=== PATIENT | female | born 1980 | race Caucasian/White ===

== ENCOUNTER 2019-08-28 18:15 | Emergency (ER) | payer OTHER ==
--- OUTSIDE RECORDS SUMMARY | 2019-08-28 18:20 | XMS REPORT | Summary of Care ---
:1980 Author Organization [facility] Address [address] [address] Care Team Providers Name Role Phone [place]Memo Lul Primary Care Provider Reason for Visit Sleep Study (Routine) Status Reason Specialty Diagnoses / Referred By Referred To Procedures Contact Contact Closed Sleep Disorder Diagnoses Insufficient sleep syndrome Annita Womack, [facility] PA-Yoly [address] [place] [phone] Phone: Encounter Details Date Type Department Care Team Description 08/17/2019 Hospital Encounter [facility] Sleep Lab Outpatient [address] [place] [phone] Allergies No Known Allergiesdocumented as of this encounter (statuses as of 08/19/2019) Medications Medication Sig Dispensed Refills Start Date End Date Status Aspirin-Acetaminophen- Take by mouth 0 Active Caffeine (EXCEDRIN DAILY NEEDED. MIGRAINE) 250-250-65 MG Oral Tab Acetaminophen Take by mouth. 0 Active (TYLENOL) 325 MG Oral Cap albuterol HFA Take 2 Puffs by 1 Inhaler 5 06/28/2019 Active (VENTOLIN) 108 (90 inhalation EVERY Base) MCG/ACT FOUR HOURS Inhalation Aero Soln NEEDED (short of breath and wheezing). documented as of this encounter (statuses as of 08/19/2019) Active Problems Problem Noted Date Headache syndrome 06/02/2013 Tobacco use disorder 08/26/2012 Overview: 1 pack per day began age 20 Tried e cigarette February 2013 quit one month Family history of diabetes mellitus 08/26/2012 Obesity, unspecified 08/26/2012 Overview: bmi 34 08/2012 documented as of this encounter (statuses as of 08/19/2019) Immunizations Name Administration Dates Next Due Influenza (IM) Preservative Free 12/19/2014, 08/26/2012 documented as of this encounter Social History Tobacco Use Types Packs/Day Years Used Date Current Every Day Smoker Cigarettes 1 15 Smokeless Tobacco: Never Used Comments: cutting down Alcohol Use Drinks/Week oz/Week Comments No 0 Standard drinks or equivalent 0.0 Sex Assigned at Date Recorded Not on file Job Start Date Occupation Industry Not on file Not on file Not on file Travel History Travel Start Travel End No recent travel history available. documented as of this encounter Last Filed Vital Signs Not on filedocumented in this encounter Plan of Treatment Name Type Priority Associated Diagnoses Order Schedule REFER TO SLEEP STUDY Referral Routine Insufficient sleep syndrome Ordered: 07/27/2019 LAB Health Maintenance Due Date Last Done Comments PNEUMOCOCCAL 0-64 YRS (1 of 1 1987 - PPSV23) HIV SCREENING 1996 PAP SMEAR 2002 INFLUENZA VACCINE (#1) 2019 12/19/2014, 08/26/2012 DEPRESSION SCREENING 07/27/2020 07/27/2019 HPV IMMUNIZATION SERIES Aged Out No longer eligible based on patient's age to complete this topic MENINGOCOCCAL VACCINE IMM Aged Out No longer eligible based on patient's age to complete this topic documented as of this encounter Results Not on filedocumented in this encounter documented as of this encounter
--- OUTSIDE RECORDS SUMMARY | 2019-08-28 18:20 | XMS REPORT | Summary of Care ---
:1980 Author Organization [facility] Address [address] [facility] [place] [address] Care Team Providers Name Role Phone Memo Kumar Primary Care Provider Reason for Referral Sleep Study (Routine) Status Reason Specialty Diagnoses / Referred By Referred To Procedures Contact Contact Pending Review Sleep Disorder Diagnoses Insufficient sleep syndrome Sue Womack [facility] BLAS Ariza [address] [place] [address] [place], [place] [address] [phone] Phone: Scheduling Instructions This order is to be used to begin the process for the patient to have a Sleep Study performed. If you wish to have the patient evaluated by a Sleep Specialist, please place a "Refer Sleep Medicine Specialist" order. If you have questions, please contact our Patient Coordinators: Tash: Oran: Casimiro: ([phone] or Reason for Visit Reason Comments Sleep Problem pt states she has daytime sleepiness, morning headaches, snoring , and family Hx of sleep apnea. pt would like home sleep study Encounter Details Date Type Department Care Team Description 07/27/2019 Office Visit [place] Annita Womack Insufficient sleep syndrome (Primary Dx); Practice PAChris Tobacco use disorder; [address] Class 3 severe obesity with body mass index (BMI) of 40.0 to 44.9 in adult, unspecified obesity type, unspecified whether serious comorbidity present ([facility]) [place] [address] [phone] Allergies No Known Allergiesdocumented as of this encounter (statuses as of 07/27/2019) Medications Medication Sig Dispensed Refills Start Date [...] as of this encounter (statuses as of 07/27/2019) Active Problems Problem Noted Date Headache syndrome 06/02/2013 Tobacco use disorder 08/26/2012 Overview: 1 pack per day began age 20 Tried e cigarette February 2013 quit one month Family history of diabetes mellitus 08/26/2012 Obesity, unspecified 08/26/2012 Overview: bmi 34 08/2012 documented as of this encounter (statuses as of 07/27/2019) Immunizations Name Administration Dates Next Due Influenza [...] of this encounter Last Filed Vital Signs Vital Sign Reading Time Taken Comments Blood Pressure 122/82 07/27/2019 1:48 PM EST Pulse 105 07/27/2019 1:48 PM EST Temperature 36.9 07/27/2019 1:48 PM EST C (98.4 F) Respiratory Rate - - Oxygen Saturation 97% 07/27/2019 1:48 PM EST Inhaled Oxygen Concentration - - Weight 106.6 kg (235 lb) 07/27/2019 1:48 PM EST Height 160 cm (5' 3") 07/27/2019 1:48 PM EST Body Mass Index 41.63 07/27/2019 1:48 PM EST documented in this encounter Patient Instructions Patient InstructionsDoAnnita garcia PA-C - 07/27/2019 1:40 PM EST1. Ordered Home sleep study, [employer]ATING SAF[employer]Y OFFICER will call after he gets insurance approval 2. Strongly suggested patient stop smoking, says she will try to cut back documented in this encounter Progress Notes Annita Womack PA-C - 07/27/2019 1:40 PM EST PATIENT: Caitie Llamas : 1980 DATE OF SERVICE: 07/27/2019 REFERRING PRACTITIONER: Padilla PRIMARY CARE PROVIDER: Memo Kumar CHIEF COMPLAINT: Chief Complaint Patient presents with Sleep Problem pt states she has daytime sleepiness, morning headaches, snoring, and family Hx of sleep apnea. ptwould like home sleep study Subjective HISTORY OF PRESENT ILLNESS: Caitie Llamas is a 39-y.o. female who presents to discuss having sleep study Says she snores loudly, experiencing daytime sleepiness, morning headaches Family history of sleep apnea Asking for sleep study Smoking 1ppd Denies fever, chills, nausea, vomiting, diarrhea, chest pains, SOB No past medical history on file. Past Surgical History: Procedure Laterality Date LOW CERVICAL x3 Family History Problem Relation Age of Onset Cancer Maternal Grandmother pancreatic Cancer Paternal Grandmother brain Heart Disease Paternal Grandfather Diabetes Other cousin Depression/Depressed Unknown several maternal relatives Asthma Brother Current Outpatient Medications Medication Sig Acetaminophen (TYLENOL) 325 MG Oral Cap Take by mouth. albuterol HFA (VENTOLIN) 108 (90 Base) MCG/ACT Inhalation Aero Soln Take 2 Puffs by inhalation EVERY FOUR HOURS NEEDED (short of breath and wheezing) . Jkqsenv-Sslkcrzitabrc-Snxjtucp (EXCEDRIN MIGRAINE) 250-250-65 MG Oral Tab Take by mouth DAILY NEEDED. No current facility-administered medications for this visit. No Known Allergies Social History Socioeconomic History Marital status: Single Spouse name: Not on file Number of children: Not on file Years of education: Not on file Highest education level: Not on file Occupational History Not on file Social Needs Financial resource strain: Not on file Food insecurity: Worry: Not on file Inability: Not on file Transportation needs: Medical: Not on file Non-medical: Not on file Tobacco Use Smoking status: Current Every Day Smoker Packs/day: 1.00 Years: 15.00 Pack years: 15.00 Types: Cigarettes Smokeless tobacco: Never Used Tobacco comment: cutting down Substance and Sexual Activity Alcohol use: No Alcohol/week: 0.0 standard drinks Drug use: No Sexual activity: Yes Partners: Female Lifestyle Physical activity: Days per week: Not on file Minutes per session: Not on file Stress: Not on file Relationships Social connections: Talks on phone: Not on file Gets together: Not on file Attends yazidism service: Not on file Active member of club or organization: Not on file Attends meetings of clubs or organizations: Not on file Relationship status: Not on file Intimate partner violence: Fear of current or ex partner: Not on file Emotionally abused: Not on file Physically abused: Not on file Forced sexual activity: Not on file Other Topics Concern Back Care Not Asked Bike Helmet Not Asked Blood Transfusions Not Asked Caffeine Concern Not Asked Exercise Yes Comment: walks 2 times per day Hobby Hazards Not Asked International Travel Not Asked Service Not Asked Occupational Exposure Not Asked Seat Belt Not Asked Self-Exams Not Asked Sleep Concern No Special Diet No Stress Concern Not Asked Weight Concern Yes Comment: goal wt loss 50 lbs or 150 lbs Social History Narrative Grew up in [place], [place] Lives in [place], [place] Single, has boyfriend whom she lives with 3 kids 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 REVIEW OF SYSTEMS: Skin: negative skin lesions Eyes: negative visual blurring Ears/Nose/Throat: negative rhinorrhea or sore throat Respiratory: negative cough Cardiovascular: negative chest pain Gastrointestinal: negative abdominal pain, constipation, diarrhea, nausea or vomiting Genitourinary: negative burning on urination, dysuria or vaginal discharge Musculoskeletal: negative arthritis/joint pain Neurologic: negative numbness or tingling of feet or hands Psychiatric: negative anxiety Hematologic/Lymphatic/Immunologic: negative allergies Endocrine: negative diabetes or hot flashes/sweats Objective PHYSICAL EXAMINATION: VITALS: BP 122/82 (BP Location: Right arm, Patient Position: Sitting) | Pulse 105 | Temp 98.4 F (36.9 C) | Ht 5' 3" (1.6 m) | Wt 235 lb (106.6 kg) | SpO2 97% | BMI 41.63 kg/m Body mass index is 41.63 kg/m. General appearance - alert, no distress, cooperative, oriented times 3, morbidly obese Skin - Skin color, texture, turgor normal. No rashes or lesions. Head - Normocephalic. No masses, lesions, tenderness or abnormalities Eyes - conjunctivae/corneas clear. PERRL, EOM's intact. Oropharynx - Lips, mucosa, and tongue normal. Oropharynx Normal. Mallampati: 3 Neck - Neck supple, FROM. No cervical or supraclavicular adenopathy. Thyroid normal, no enlargement Lungs - Good diaphragmatic excursion. Lungs clear. Chest symmetrical. Normal breath sounds. Heart - RRR. No murmurs, clicks or gallops. No peripheral edema. . IMPRESSION: ICD-9-CM ICD-10-CM 1. Insufficient sleep syndrome 307.44 F51.12 REFER TO SLEEP STUDY LAB 2. Tobacco use disorder 305.1 F17.200 3. Class 3 severe obesity with body mass index (BMI) of 40.0 to 44.9 in adult, unspecified obesity type, unspecified whether serious comorbidity present ([facility]) E66.01 Z68.41 Plan PLAN: 1. Ordered Home sleep study, BOATING SAFETY OFFICER will call after he gets insurance approval 2. Strongly suggested patient stop smoking, says she will try to cut back 3. Recommend loosing weight sensibly, gradually Author: Annita Womack PA-C 07/27/2019 13:48 documented in this encounter Plan of Treatment Name Type Priority Associated Diagnoses Order Schedule REFER TO SLEEP STUDY Referral Routine Insufficient sleep syndrome Ordered: 07/27/2019 LAB Health Maintenance Due Date Last Done Comments PAP SMEAR 1980 PNEUMOCOCCAL 0-64 YRS (1 of 1 1987 - PPSV23) DEPRESSION SCREENING 1993 HIV SCREENING 1996 INFLUENZA VACCINE (#1) 2019 12/19/2014, 08/26/2012 HPV IMMUNIZATION SERIES Aged Out No longer eligible based on patient's age to complete this topic MENINGOCOCCAL VACCINE IMM Aged Out No longer eligible based on patient's age to complete this topic documented as of this encounter Results Not on filedocumented in this encounter Visit Diagnoses Diagnosis Insufficient sleep syndrome - Primary Persistent disorder of initiating or maintaining wakefulness Tobacco use disorder Class 3 severe obesity with body mass index (BMI) of 40.0 to 44.9 in adult, unspecified obesity type, unspecified whether serious comorbidity present (HCC) documented in this encounter documented as of this encounter
[2019-08-28] MEDS ORDERED: Ketorolac INJ* 30 MG/ML 1 ML VIAL IM ONE (18:27)
--- NOTE | 2019-08-28 19:05 | UC ---
Bite Injury/Animal HPI - HPI Summary HPI Summary: Patient is a 39yo female presenting with and son for dog bite to L hand that happened a couple hours ago. Patient states it was her own dog which is UTD on rabies vaccinations. States she knows "he does not like his mouth touched and she got too close when pushing him away from smelling her chapstick. " Denies decreased ROM but notes pain with movement. Notes current throbbing pain. States bite patel bled immediately but has mostly gotten it to stop. Denies numbness and tingling. States she is UTD on tetanus. - History of Current Complaint Chief Complaint: UCUpperExtremity Stated Complaint: DOG BITE Hx Obtained From: Patient Hx Last Menstrual Period: 08/11/2019 Pain Intensity: 9 Pain Scale Used: 0-10 Numeric Type of Bite: Pet - dog Has Animal Been Immunized?: Yes Character: Puncture - Allergies/Home Medications Allergies/Adverse Reactions: Allergies Allergy/AdvReac Type Severity Reaction Status Date / Time No Known Allergies Allergy Verified 08/28/19 18:37 Home Medications: Home Medications Aspirin/Acetaminophen/Caffeine [Excedrin Migraine Geltab] 08/28/19 [History] PMH/Surg Hx/FS Hx/Imm Hx Previously Healthy: Yes - Surgical History Surgical History: Yes Surgery Procedure, Year, and Place: 3 C Sections LAST ONE WITH TUBAL 2009 [facility], gallbladder removal APPENDECTOMY 09/19/14 - Family History Known Family History: Positive: None, Non-Contributory - Social History Alcohol Use: None Substance Use Type: None Smoking Status (MU): Heavy Every Day Tobacco Smoker Type: Cigarettes Amount Used/How Often: 1 ppd Length of Time of Smoking/Using Tobacco: 15 years Have You Smoked in the Last Year: Yes When Did the Patient Quit Smoking/Using Tobacco: PACK/DAY - Immunization History Most Recent Influenza Vaccination: 2013 Most Recent Tetanus Shot: unknown Most Recent Pneumonia Vaccination: never Review of Systems All Other Systems Reviewed And Are Negative: No Skin: Positive: Other - multiple bite wounds from dog bite Respiratory: Positive: Negative Cardiovascular: Positive: Negative Gastrointestinal: Positive: Negative. Negative: Vomiting, Nausea Musculoskeletal: Positive: Negative. Negative: Arthralgia, Decreased ROM Neurological: Positive: Negative. Negative: Weakness, Paresthesia, Numbness Physical Exam Triage Information Reviewed: Yes Appearance: Well-Appearing, No Pain Distress, Well-Nourished Vital Signs: Initial Vital Signs Temp 98.0 F 08/28/19 18:26 Pulse 106 08/28/19 18:26 Resp 18 08/28/19 18:26 BP 132/90 08/28/19 18:26 Pulse Ox 97 08/28/19 18:26 Vital Signs Reviewed: Yes Eyes: Positive: Conjunctiva Clear ENT: Positive: Hearing grossly normal Neck: Positive: Supple Respiratory: Positive: No respiratory distress Cardiovascular: Positive: Pulses Normal - strong radial pulses b/l, Brisk Capillary Refill - <2 sec Musculoskeletal: Positive: ROM Limited @ - L wrist flexion and extension d/t pain, Edema @ - L dorsal hand/wrist and L thenar eminence Neurological Exam: Other - sensation grossly intact Neurological: Positive: Alert Psychological: Positive: Age Appropriate Behavior Skin: Positive: Other - multiple superficial puncture wounds and abrasions noted of L dorsal wrist, dorsal hand, and palm. minimal bleeding. Procedures - Laceration/Wound Repair 3 Location: upper extremity - L dorsal wrist, L dorsal hand, L thenar eminence Description: Linear Length, Depth and Shape: 3 puncture wounds each ~1cm long and 0.5cm deep Irrigated w/ Saline (ccs): 250 Laceration/Wound Explored: clean, no foreign body removed Closure: Single Layer Debridement: moderate Suture Type: Prolene - 5-0 Number of Sutures: 3 Layer Closure?: Yes Sterile Dressing Applied?: Yes Bite Injury Course/Dx - Course Course Of Treatment: Patient bite wounds irrigated. I placed 1 suture in 3 puncture wound sites, allowing space for any infection should it occur. Patient tolerated procedure well. Patient stated her dog's vaccines UTD as well as her tetanus shot being UTD. She received first dose of Augmentin here and second dose to take home for infection prevention. The remainder was sent as prescription to her pharmacy. She received dose of ketorolac here and instructed to continue with otc analgesics as directed for pain relief. Educated patient on wound care and s/s of infection. Instructed to go to ED if any s/s of infection occur. Patient voiced understanding and agreed with treatment plan. - Differential Dx/Diagnosis Provider Diagnosis: Dog bite of left hand, Laceration of left hand without complication, excluding fingers Discharge ED - Sign-Out/Discharge Documenting (check all that apply): Patient Departure All imaging exams completed and their final reports reviewed: No Studies - Discharge Plan Condition: Stable Disposition: HOME Prescriptions: Amoxicillin/Clavulanate TAB* [Augmentin TAB 875*] 875 mg PO BID #8 tab Patient Education Materials: Animal Bite (ED), Care For Your Stitches (ED) Referrals: Memo Kumar MD [Primary Care Provider] - If Needed Additional Instructions: As discussed, take Augmentin as prescribed for prevention of infection. You received the first dose here at the urgent care and the second dose to take 12 hours after taking the first dose. The remainder of your prescription has been sent to your pharmacy. You received 3 stitches today. Keep your stitches clean and dry for the first 24-48 hours. After that, wash gently with soap and water daily. Your stitches will not absorb. Return or follow up with your primary care provider in 10 days to have your stitches removed. You may take over the counter pain medications as directed for pain relief. Go to the emergency department if you notice any redness, severe pain, swelling , fluid drainage, fever, or nausea and vomiting. - Billing Disposition and Condition Condition: STABLE Disposition: Home - Attestation Statements Provider Attestation: This patient was not seen by me I was available for consult Chart reviewed ALLY
[2019-08-28] MEDS ORDERED: Lidocaine 1% MPF ** 5 ML VIAL INJ ONE (19:09)
[2019-08-28] MEDS ORDERED: Amoxicillin/Clavulanate TAB* 875 MG PO ONE (19:44)
[2019-08-28 19:54] VITALS: BP 126/80
== END 2019-08-28 20:15 | disposition home or self-care (01) ==
LOC: UCEAST 18:15
DX: S61.412A Laceration without foreign body of left hand, initial encounter (principal); S61.452A Open bite of left hand, initial encounter; F17.210 Nicotine dependence, cigarettes, uncomplicated; W54.0XXA Bitten by dog, initial encounter; Y92.9 Unspecified place or not applicable
CPT/HCPCS: 12001; 99212; A9270-GY; G0463; J1885